=== PATIENT | male | born 1975 | race Caucasian/White ===

== ENCOUNTER 2018-11-02 09:23 | Emergency (ER) | payer SELFPAY ==
[2018-11-02] MEDS ORDERED: Ondansetron 4 MG/2 ML SDV IVPUSH ONE (09:30)
[2018-11-02] MEDS ORDERED: Ketorolac 30 MG/ML SDV IVPUSH ONE (09:30)
[2018-11-02] MEDS ORDERED: Sodium Chloride 0.9% 1,000 ML IV ONE (09:30)
--- NOTE | 2018-11-02 09:31 | EDM.PDOC ---
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 Past medical history: As per history of present illness and as reviewed below otherwise noncontributory. Surgical history: As per history of present illness and as reviewed below otherwise noncontributory. Social history: No reported history of drug or alcohol abuse. Family history: As per history of present illness and as reviewed below otherwise noncontributory. Physical exam: HEENT: Atraumatic, normocephalic, pupils reactive, negative for conjunctival pallor or scleral icterus, mucous membranes moist, throat clear, neck supple, nontender, trachea midline. Lungs: Clear to auscultation, breath sounds equal bilaterally, chest nontender. Heart: S1S2, regular, negative for clicks, rubs, or JVD. Abdomen: Soft, nondistended, nontender. Negative for masses or hepatosplenomegaly. Negative for costovertebral tenderness. Pelvis: Stable nontender. Genitourinary: Deferred. Rectal: Deferred. Extremities: Atraumatic, negative for cords or calf pain. Neurovascular unremarkable. Neuro: Awake, alert, oriented. Cranial nerves II through XII unremarkable. Cerebellum unremarkable. Motor and sensory unremarkable throughout. Exam nonfocal. 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 Noted Lumbar paraspinous muscle spasm ] Definitive disposition and diagnosis as appropriate pending reevaluation and review of above. Right Flank Pain Score (Numeric/FACES): 6 - Related Data Allergies Allergy/AdvReac Type Severity Reaction Status Date / Time steroid Allergy Hives Uncoded 11/02/18 09:31 Home Meds: Home Meds . [No Known Home Meds] 11/02/18 [History] ED ROS GENERAL - Review of Systems Review Of Systems: See Below ED EXAM, GENERAL - Physical Exam Exam: See Below Course - Vital Signs Last Recorded V/S: Last Vital Signs Temp 97.3 F 11/02/18 09:32 Pulse 69 11/02/18 09:32 Resp 16 11/02/18 09:32 BP 118/86 11/02/18 09:32 Pulse Ox 98 11/02/18 09:32 - Orders/Labs/Meds Labs: Laboratory Tests 11/02/18 11/02/18 11/02/18 Range/Units 09:39 09:53 09:53 WBC 5.87 (4.0-11.0) K/uL RBC 5.00 (4.50-5.90) M/uL Hgb 15.0 (13.0-17.0) g/dL Hct 44.8 (38.0-50.0) % MCV 89.6 (80.0-98.0) fL MCH 30.0 (27.0-32.0) pg MCHC 33.5 (31.0-37.0) g/dL RDW Std Deviation 45.7 (28.0-62.0) fl RDW Coeff of Luis Alfredo 14 (11.0-15.0) % Plt Count 243 (150-400) K/uL MPV 9.80 (7.40-12.00) fL Neut % (Auto) 61.7 (48.0-80.0) % Lymph % (Auto) 30.2 (16.0-40.0) % Forrest % (Auto) 6.1 (0.0-15.0) % Eos % (Auto) 1.5 (0.0-7.0) % Baso % (Auto) 0.5 (0.0-1.5) % Neut # (Auto) 3.6 (1.4-5.7) K/uL Lymph # (Auto) 1.8 (0.6-2.4) K/uL Forrest # (Auto) 0.4 (0.0-0.8) K/uL Eos # (Auto) 0.1 (0.0-0.7) K/uL Baso # (Auto) 0.0 (0.0-0.1) K/uL Nucleated RBC % 0.0 /100WBC Nucleated RBCs # 0 K/uL Sodium 141 (136-148) mmol/L Potassium 4.0 (3.5-5.1) mmol/L Chloride 106 (98-107) mmol/L Carbon Dioxide 25.9 (21.0-32.0) mmol/L BUN 14 (7.0-18.0) mg/dL Creatinine 0.9 (0.8-1.3) mg/dL Est Cr Clr Drug Dosing 117.36 mL/min Estimated GFR (MDRD) > 60.0 ml/min Glucose 148 H (74-106) mg/dL Calcium 9.1 (8.5-10.1) mg/dL Total Bilirubin 0.3 (0.2-1.0) mg/dL AST 17 (15-37) IU/L ALT 28 (14-63) IU/L Alkaline Phosphatase 85 (46-116) U/L Troponin I < 0.050 (0.000-0.056) ng/mL Total Protein 7.3 (6.4-8.2) g/dL Albumin 4.2 (3.4-5.0) g/dL Globulin 3.1 (2.6-4.0) g/dL Albumin/Globulin Ratio 1.4 (0.9-1.6) Lipase 204 (73-393) U/L Urine Color YELLOW Urine Appearance CLEAR Urine pH 6.0 (5.0-8.0) Ur Specific [place] >= 1.030 (1.001-1.035) Urine Protein NEGATIVE (NEGATIVE) mg/dL Urine Glucose (UA) 500 H (NEGATIVE) mg/dL Urine Ketones NEGATIVE (NEGATIVE) mg/dL Urine Occult Blood NEGATIVE (NEGATIVE) Urine Nitrite NEGATIVE (NEGATIVE) Urine Bilirubin NEGATIVE (NEGATIVE) Urine Urobilinogen 0.2 (<2.0) EU/dL Ur Leukocyte Esterase NEGATIVE (NEGATIVE) Meds: Medications Discontinued Medications Generic Name Dose Route Start Last Admin Trade Name Freq PRN Reason Stop Dose Admin Sodium Chloride 1,000 mls @ 999 mls/hr 11/02/18 09:30 11/02/18 09:49 Normal Saline IV 11/02/18 10:30 999 mls/hr STAT ONE Administration Ketorolac Tromethamine 30 mg 11/02/18 09:30 11/02/18 09:49 Toradol IVPUSH 11/02/18 09:31 30 mg ONETIME ONE Administration Ondansetron HCl 8 mg 11/02/18 09:30 11/02/18 09:49 Zofran IVPUSH 11/02/18 09:31 8 mg ONETIME ONE Administration Departure - Departure Time of Disposition: 10:35 Disposition: Home, Self-Care 01 Condition: Good Clinical Impression: Lumbar paraspinal muscle spasm - Discharge Information Forms: ED Department Discharge Additional Instructions: Medication as prescribed Toradol-for pain and anti-inflammatory, you may take this while driving or at work Flexeril/cyclobenzaprine is a muscle relaxant and should not be used while at work or operating heavy equipment no alcohol with this medication no driving Ice 20 minute intervals 3 times daily, icy hot patches may benefit Follow-up with primary care in 2 weeks sooner as needed Again you have glucose and UA urine should be followed by primary care to check for diabetes [facility] [address] [place] [address] The following information is given to patients seen in the emergency department who are being discharged to home. This information is to outline your options for follow-up care. We provide all patients seen in our emergency department with a follow-up referral. The need for follow-up, as well as the timing and circumstances, are variable depending upon the specifics of your emergency department visit. If you don't have a primary care physician on staff, we will provide you with a referral. We always advise you to contact your personal physician following an emergency department visit to inform them of the circumstance of the visit and for follow-up with them and/or the need for any referrals to a consulting specialist. The emergency department will also refer you to a specialist when appropriate. This referral assures that you have the opportunity for follow-up care with a specialist. All of these measure are taken in an effort to provide you with optimal care, which includes your follow-up. Under all circumstances we always encourage you to contact your private physician who remains a resource for coordinating your care. When calling for follow-up care, please make the office aware that this follow-up is from your recent emergency room visit. If for any reason you are refused follow-up, please contact the [facility] emergency department at and asked to speak to the emergency department charge nurse.
[2018-11-02 10:23] LABS: CHLORIDE,CL 106 mmol/L (98-107); SODIUM,NA 141 mmol/L (136-148)
== END 2018-11-02 10:49 | disposition home or self-care (01) ==
LOC: MW.ED 09:23
DX: M62.830 Muscle spasm of back (principal); R81 Glycosuria; Z88.5 Allergy status to narcotic agent
CPT/HCPCS: 36415; 80053; 81003; 83690; 84484; 85025; 96361; 96374; 96375; 99284; J1885; J2405; J7040; 99283